=== PATIENT | male | born 1980 | race Caucasian/White ===

== ENCOUNTER → 2019-07-17 10:53 | Outpatient (CLI) | payer OTHER, BC, SELFPAY ==
--- NOTE | 2019-07-17 10:59 | XR_ITS ---
PROCEDURE: XR HAND RT MIN 3V CLINICAL INDICATION: right 3rd mc fx COMPARISON: XR HAND RT MIN 3V from 07/09/2019 FINDINGS: Splint device is now present. The oblique spiral fracture of the mid and distal shaft of the 3rd metacarpal bone is unchanged. The remainder of the right hand is unchanged. IMPRESSION: Placement of a splint device. No other change. Dictated by: Law Austin 07/17/2019 11:20 Electronically signed by Law Austin in [facility] 07/17/2019 11:20
--- NOTE | 2019-07-17 12:09 | CT_ITS ---
PROCEDURE: CT FOOT RT WO CON CLINICAL HISTORY: evaluate right calcaneous fx COMPARISON: XR FOOT RT MIN 3V from 07/09/2019 TECHNIQUE: Axial images obtained with sagittal and coronal reformats. All CT scans at the facility use one or more dose reduction, viz: automated exposure control, ma/kV adjustment per patient size (including targeted exams where dose is matched to indication, i.e. head), or iterative reconstruction technique. FINDINGS: The bone density, joint spaces and alignment appear normal. There appears to be at least 3 thin hairline fractures involving the calcaneus. The longus of which occurs along the medial inferior posterior aspect of the calcaneus and extends obliquely to the inferior mid lateral cortex. There is another show much shorter hairline fracture component involving the anterior medial cortex and extends towards the articular cortex near the subtalar joint. There is another shorter hairline fracture, image number 29 series number 3 involving the articular cortex at the subtalar joint area. There is little or no separation of the fracture fragments. There is a 3 millimeter round sclerotic density involving the posterior metaphysis of the distal tibia likely benign bone island. Focally within the superficial and deeper soft tissues laterally at the level of the sinus tarsi area there is a heterogeneous density which has some internal mixed areas of hypodensity with some irregular sandoval. One such focus is 10 millimeters in the other focus is 8.6 millimeters. This is seen on images 29-33 from series 3. IMPRESSION: There are 3 nondisplaced hairline subtle fractures of the calcaneus. Lateral soft tissue abnormality discussed above is nonspecific. This could be some resolving edema/chronic hematoma from the trauma although infectious process such as phlegmon or developing abscesses are not ruled out. Depending upon history MRI with contrast may be beneficial. Dictated by: Law Austin 07/17/2019 12:52 Electronically signed by Law Austin in [place] 07/17/2019 12:52
== END ==
PROVIDERS: Visit Provider Orthopaedic Surgery
DX: S62.352A Nondisplaced fracture of shaft of third metacarpal bone, right hand, initial encounter for closed fracture (principal); S92.014A Nondisplaced fracture of body of right calcaneus, initial encounter for closed fracture
CPT/HCPCS: 73130; 73700

== ENCOUNTER → 2019-07-24 14:50 | Outpatient (CLI) | payer OTHER, SELFPAY ==
--- NOTE | 2019-07-24 | ECG_ITS ---
APPROVED REPORT Exam: Resting ECG HR:82 bpm ECG Measurements Heart Rate 82 AXES NH 152 P 69 QRSd 92 QRS 70 QT 348 T 37 QTc 406 <Conclusion> Normal sinus rhythm ST elevation, probably due to early repolarization Borderline ECG Electronically signed by : Julian Webber, 07/25/2019 08:08:15
[2019-07-24 15:14] LABS: Basophils # 0.1 K/mm3 (0-0.2); Basophils % 0.7 % (0.1-2.0); Eosinophils # 0.1 K/mm3 (0.0-0.4); Eosinophils % 1.6 % (0.1-12.0); Hematocrit 44.2 % (42.0-52.0); Hemoglobin 14.8 g/dL (14.1-18.0); Lymphocytes # 1.8 K/mm3 (0.7-4.5); Lymphocytes % 27.8 % (10-50); Mean Corpuscular HGB Conc 33.5 g/dL (31.8-35.4); Mean Corpuscular Volume 89.5 fl (80-94); Mean Platelet Volume 7.7 fl (7.4-10.4); Monocytes # 0.4 K/mm3 (0.1-1.0); Neutrophils # 4.1 K/mm3 (1.8-7.8); Neutrophils % 63.9 % (37.0-80.0); Platelet Count 316 K/mm3 (142-424); Red Blood Count 4.94 M/mm3 (4.60-6.20); Red Cell Distribution Width 12.3 % (11.5-17.5); White Blood Count 6.4 K/mm3 (4.8-10.8)
--- NOTE | 2019-07-24 15:16 | XR_ITS ---
PROCEDURE: XR CHEST 2V CLINICAL HISTORY: HX TOBACCO USE, VAPES COMPARISON: XR CHEST PORTABLE from 07/09/2019 FINDINGS: The cardiomediastinal silhouette and pulmonary vascularity are within normal limits. The lungs are clear without infiltrates, suspicious nodules, or pleural effusions. No acute bony abnormalities. IMPRESSION: No acute findings. Dictated by: Willie Bunch MD 07/24/2019 15:47 Electronically signed by Willie Bunch MD in [facility] 07/24/2019 15:47
[2019-07-24 16:11] LABS: Alanine Aminotransferase 77 U/L (12-78); Albumin/Globulin Ratio 1.1 (1.1-1.8); Alkaline Phosphatase 82 U/L (46-116); Anion Gap 14.6 mEq/L (5-15); Aspartate Amino Transferase 52 U/L (15-37); Bilirubin,Total 1.3 mg/dL (0.2-1.0); Blood Urea Nitrogen 19 mg/dL (7-18); Calcium 9.1 mg/dL (8.5-10.1); Carbon Dioxide 26 mmol/L (21.0-32.0); Chloride 101 mmol/L (98-107); Creatinine,Serum 0.93 mg/dL (0.70-1.30); Estimated Glomerular Filt Rate 90 ml/min (>60); GFR (African American) 109 ML/MIN (>60); Globulin 3.5 gm/dl (1.3-3.2); Glucose 96 mg/dL (74-106); Potassium 4.6 mmoL/L (3.5-5.1); Sodium 137 mmol/L (136-145); Total Protein,Serum 7.5 gm/dL (6.4-8.2)
[2019-07-26 09:58] LABS: Vitamin D 25 Hydroxy 7.6 ng/mL (30.0-100.0)
== END ==
PROVIDERS: PCP Nurse Practitioner Family; Visit Provider Podiatrist
DX: Z01.818 Encounter for other preprocedural examination (principal); S92.014A Nondisplaced fracture of body of right calcaneus, initial encounter for closed fracture
CPT/HCPCS: 36415; 71046; 80053; 82652; 85025; 93005

== ENCOUNTER → 2019-07-29 10:21 | Outpatient (CLI) | payer OTHER, SELFPAY ==
--- NOTE | 2019-07-29 10:21 | CA_ITS ---
APPROVED REPORT EXAM: Comprehensive 2D, Doppler, and color-flow Echocardiogram Manuscript Editor: Nathalie Marie RVT Ht: 5 ft 8 in Wt: 200lbs BSA: 2.04 BP: 128/84 mmHg Indications: Abn EKG, pre-op for foot surgery,Hx of smoking Echo Enhancing Agent Indication: Rule Out Septal Defect Agent(s) / Amount(s) Used: Agitated Saline 5 cc Agitated Saline 5 cc Comments: Bubble study done appears positive 2D Dimensions LVOT 2.01 cm (M/F) 1.5-2.5 M-Mode Dimensions RVDd 2.65 cm (0.9-2.6) LVDd 4.39 cm (3.5-5.7) LVDs 3.08 cm (3.5-5.7) IVSd 0.87 cm (0.6-1.1) PWd 1.04 cm (0.6-1.1) EF (Teich) 57.20% FS 29.80% EDV (Teich) 87.20 mL ESV (Teich) 37.30 mL LV Diastology E/A Ratio 0.80 Mitral Valve MV A Velocity 75.00 (40-130 cm/s) Left Ventricle Left atrium is normal size, left ventricle is normal size, there is preserved left ventricular systolic function, visually estimated ejection fraction 55% with no regional wall motion abnormality. Diastolic parameters are inconclusive. Right Ventricle Right atrium and right ventricular upper limit of the normal size. Atria Intra-atrial septum is mobile, agitated saline contrast study is inconclusive for presence of intracardiac shunt, if clinically indicated transesophageal echocardiogram is recommended. Aortic Valve Aortic valve is grossly normal, there is no aortic stenosis or aortic insufficiency. Mitral Valve Mitral valve is grossly normal, there is mild mitral regurgitation. Tricuspid Valve Tricuspid valve is grossly normal, there is mild tricuspid regurgitation. Pulmonic Valve Pulmonic valve is poorly visualized. Great Vessels Aortic root is normal size. Pericardium No significant pericardial effusion noted. Conclusion 1. Normal left ventricular size, preserved left ventricular systolic function, visually estimated ejection fraction 55% with no regional wall motion abnormality, diastolic parameters are inconclusive. 2. Mild mitral and tricuspid regurgitation. 3. Agitated saline contrast study is inconclusive for presence of intracardiac shunt, if clinically indicated transesophageal echocardiogram is recommended. 4. No significant pericardial effusion noted. Electronically signed by : Eliu Riley, 07/30/2019 06:08:32
== END ==
PROVIDERS: PCP Nurse Practitioner Family; Visit Provider Nurse Practitioner Family
DX: R94.31 Abnormal electrocardiogram [ECG] [EKG] (principal)
CPT/HCPCS: 93306

== ENCOUNTER → 2019-08-05 13:28 | Outpatient (CLI) | payer OTHER, SELFPAY ==
--- NOTE | 2019-08-05 13:34 | XR_ITS ---
PROCEDURE: XR HAND RT MIN 3V CLINICAL INDICATION: right 3rd metacarpal fracture fu COMPARISON: XR HAND RT MIN 3V from 07/09/2019 XR HAND RT MIN 3V from 07/17/2019 FINDINGS: Oblique fracture of the 3rd metacarpal once again noted with mild dorsal displacement of the distal fracture fragment. And anterior splint is in place. There may be some minimal callus formation along the distal aspect of the fracture. IMPRESSION: Good alignment oblique fracture 3rd metacarpal with minimal callus formation distally Dictated by: Willie Bunch MD 08/05/2019 14:19 Electronically signed by Willie Bunch MD in [place] 08/05/2019 14:19
== END ==
PROVIDERS: PCP Nurse Practitioner Family; Visit Provider Orthopaedic Surgery
DX: S62.309A Unspecified fracture of unspecified metacarpal bone, initial encounter for closed fracture (principal)
CPT/HCPCS: 73130

== ENCOUNTER → 2019-08-14 13:18 | Outpatient (CLI) | payer OTHER, SELFPAY ==
--- NOTE | 2019-08-14 13:23 | XR_ITS ---
PROCEDURE: XR CALCANEUS RT MIN 2V CLINICAL INDICATION: post-op COMPARISON: No exams were available for comparison FINDINGS: Images were obtained with posterior splint in place. There are 2 reduction screws traversing the calcaneus. There is a residual oblique fracture line traversing the calcaneus extending to the subtalar joint. There is anatomical positioning. IMPRESSION: Anatomical positioning of calcaneal fracture fragments status post placement of reduction screws with lack of complete bony healing. Dictated by: Win Ryan 08/14/2019 18:16 Electronically signed by Win Ryna in [place] 08/14/2019 18:16
--- NOTE | 2019-08-14 13:23 | XR_ITS ---
PROCEDURE: XR FOOT WT BEARING RT 3V CLINICAL INDICATION: post-op COMPARISON: XR FOOT RT MIN 3V from 07/09/2019 XR FOOT RT MIN 3V from 07/31/2019 FINDINGS: Images are obtained through a posterior splint. There are 2 metallic reduction screws traversing the calcaneus. There is anatomical positioning. A residual fracture line through the calcaneus is noted. No new finding is apparent. IMPRESSION: No significant change in anatomical alignment of the calcaneus. Residual oblique fracture line is noted. Dictated by: Win Ryan 08/14/2019 18:14 Electronically signed by Win Ryan in [facility] 08/14/2019 18:14
== END ==
PROVIDERS: PCP Nurse Practitioner Family; Visit Provider Podiatrist
DX: S92.014D Nondisplaced fracture of body of right calcaneus, subsequent encounter for fracture with routine healing (principal); Z98.890 Other specified postprocedural states; R60.9 Edema, unspecified; G89.18 Other acute postprocedural pain
CPT/HCPCS: 73630; 73650

== ENCOUNTER → 2019-08-28 13:20 | Outpatient (CLI) | payer OTHER, BC, SELFPAY ==
--- NOTE | 2019-08-28 13:23 | XR_ITS ---
PROCEDURE: XR ANKLE WT BEARING RT MIN 3V CLINICAL INDICATION: postop surgery Follow-up surgery with swelling COMPARISON: CT FOOT RT WO CON from 07/17/2019 XR FOOT WT BEARING RT 3V from 08/14/2019 FINDINGS: Normal alignment. There are 2 lag screws within the calcaneus with good alignment. Fracture lines are not visible. No hardware malfunction. Normal alignment. small bone island is present in the distal tibia. IMPRESSION: Postsurgical changes of the calcaneus Dictated by: Willie Bunch MD 08/28/2019 13:40 Electronically signed by Willie Bunch MD in [place] 08/28/2019 13:40
== END ==
PROVIDERS: Visit Provider Podiatrist
DX: Z98.890 Other specified postprocedural states (principal); S92.014D Nondisplaced fracture of body of right calcaneus, subsequent encounter for fracture with routine healing
CPT/HCPCS: 73610

== ENCOUNTER → 2019-09-04 10:47 | Outpatient (CLI) | payer BC, SELFPAY ==
--- NOTE | 2019-09-04 10:53 | XR_ITS ---
PROCEDURE: XR HAND RT MIN 3V CLINICAL INDICATION: fu rt hand 3rd metacarpal fracture COMPARISON: XR HAND RT MIN 3V from 07/09/2019 XR HAND RT MIN 3V from 07/17/2019 XR HAND RT MIN 3V from 08/05/2019 FINDINGS: Spiral 3rd metacarpal fracture once again noted involving the proximal mid shaft of the 3rd metacarpal. There is developing callus formation with only minimal dorsal displacement of the distal fracture fragment. IMPRESSION: Healing 3rd metacarpal fracture Dictated by: Willie Bunch MD 09/04/2019 12:42 Electronically signed by Willie Bunch MD in [facility] 09/04/2019 12:42
== END ==
PROVIDERS: Visit Provider Orthopaedic Surgery
DX: S62.352A Nondisplaced fracture of shaft of third metacarpal bone, right hand, initial encounter for closed fracture (principal)
CPT/HCPCS: 73130

== ENCOUNTER → 2019-09-29 09:42 | Outpatient (CLI) | payer BC, SELFPAY ==
--- NOTE | 2019-09-29 09:57 | XR_ITS ---
PROCEDURE: XR CALCANEUS RT MIN 2V CLINICAL INDICATION: postop surgery Follow-up surgery COMPARISON: XR ANKLE WT BEARING RT MIN 3V from 08/28/2019 FINDINGS: Overall no change in the 2 screws within the calcaneus oriented in AP matter as before no fracture or dislocation. No new abnormalities evident. IMPRESSION: No change status post calcaneal surgery otherwise negative Dictated by: Willie Bunch MD 09/29/2019 12:13 Electronically signed by Willie Bunch MD in [facility] 09/29/2019 12:13
== END ==
PROVIDERS: Visit Provider Orthopaedic Surgery
DX: S92.014D Nondisplaced fracture of body of right calcaneus, subsequent encounter for fracture with routine healing (principal); Z98.890 Other specified postprocedural states
CPT/HCPCS: 73650

== ENCOUNTER → 2019-10-15 10:29 | Outpatient (CLI) | payer BC, SELFPAY ==
--- NOTE | 2019-10-15 10:34 | XR_ITS ---
PROCEDURE: XR HAND RT MIN 3V CLINICAL INDICATION: rt 3rd mc fracture fu Follow-up fracture COMPARISON: XR HAND RT MIN 3V from 07/09/2019 XR HAND RT MIN 3V from 07/17/2019 XR HAND RT MIN 3V from 08/05/2019 XR HAND RT MIN 3V from 09/04/2019 FINDINGS: Healing nondisplaced oblique fracture once again noted involving the mid and proximal aspect of the 3rd metacarpal. The fracture line is less apparent compared to the previous exam. There is good alignment The joint spaces are well-preserved. No significant degenerative/arthritic changes. No erosive changes evident. Other findings:None. IMPRESSION: Healing nondisplaced fracture 3rd metacarpal Dictated by: Willie Bunch MD 10/15/2019 11:08 Electronically signed by Willie Bunch MD in [facility] 10/15/2019 11:08
== END ==
PROVIDERS: Visit Provider Orthopaedic Surgery
DX: S62.309A Unspecified fracture of unspecified metacarpal bone, initial encounter for closed fracture (principal)
CPT/HCPCS: 73130